=== PATIENT | male | born 1980 | race Caucasian/White ===

== ENCOUNTER 2024-03-08 07:53 | Day surgery (SDC) | payer OTHER ==
[~2024-03-08] VITALS: Ht 185.4 cm; Wt 187.3 kg
[~2024-03-08 07:53] MED LIST: IBLOOD GLUCOSE TEST STRIP 1 EA TEST VI PRN; LACTATED RINGER'S 1,000 ML IV SCH; LIDOCAINE HCL 1% 5 ML SDV INJ ONE; MIDAZOLAM HCL 5 MG/5 ML VIAL IV PRN; MULTIVITAMIN1 EACH PO; PHENTERMINE H37.5 M1 PO; VITAMIN D3125 MC1 PO; fentaNYL citrate 100 MCG/2 ML VIAL IV PRN; propofoL 200 MG/20 ML VIAL ONE
[2024-03-08 08:13] VITALS: BP 142/74
[2024-03-08] MEDS ORDERED: MAGNESIUM250 M1 PO (08:19)
[2024-03-08] MEDS ORDERED: COLLAGEN PLUS1 EACH (08:21)
[2024-03-08 08:35] LABS: BASOPHILS 0.8 % (0-2); EOSINOPHILS 1.8 % (0-6); HEMOGLOBIN 15.2 g/dL (12.0-18.0); LYMPHOCYTES 23.9 % (24-44); MCHC 33.7 g/dl (30-36); MCV 83.1 fl (81-99); NEUTROPHILS 64.5 % (39-80); PLATELET COUNT 167 K/uL (140-440); RBC 5.41 M/ul (4.3-5.7); RDW 15.3 (10.5-15.0)
[2024-03-08 08:53] LABS: ALBUMIN 3.6 g/dL (3.4-5.0); ALBUMIN/GLOBULIN RATIO 1.06 (1.1-2.4); BILIRUBIN, TOTAL 0.8 ng/dL (0.2-1.0); BUN/CREATININE RATIO 11.11 (6.0-28.6); CALCIUM 8.4 mg/dL (8.5-10.1); CREATININE, SERUM 0.72 mg/dL (0.70-1.30)
[2024-03-08 10:43] VITALS: BP 117/67
--- NOTE | 2024-03-08 10:50 | NUR ---
1040 PT ARRIVED TO DAY SURGERY FROM PACU VIA STRECHER. PT AWAKE AND ORIENTED. PT DRINKING WATER. PT BREATHING EQUAL AND UNLABORED. VITALS TAKEN. IV ASSESSED. REPORT TAKEN FROM TOYA OSBORN. PT REPORTS BASELINE NAUSEA, PT REPORTING THIS CURRENTLY BUT TOLERABLE. PT REPORTS NO PAIN AND ABLE TO PASS GAS. 1050 PT SITTING UP RIGHT WITH CALL LIGHT WITHIN REACH. PT TOLERATING PO FLUIDS AND CRACKERS.
--- NOTE | 2024-03-08 11:25 | NUR ---
1125 PT USED CALL LIGHT TO ALERT NURSE OF NEEDING TO VOID. PT WAS ABLE TO AMBULATE TO BATHROOM AND VOID 400 MLS OF CLEAR YELLOW URINE. PT BACK IN ROOM GETTING DRESSED. CALL LIGHT WITHIN REACH.
--- NOTE | 2024-03-08 11:41 | NUR ---
03/08/24 1141 Justin Oro 1000-PT ARRIVED TO PACU ON 10L/MASK. PT IS AWAKE AND ANSWERING QUESTIONS APPROPRAITELY AND ABLE TO FOLLOW COMMAND. ABD SOFT. PT REPORTS NAUSEA AT BASELINE PRIOR TO PROCEDURE, BUT DENIES ANY WORSENING FROM BASELINE. 1005-PT TIRATED TO RA. SATS REMAIN 95% OR GREATER. BREATHING APPEARS EVEN AND UNLABORED. PT REPORTS FEELING DROWSY, BUT REMAINS AWAKE. 1010-DR. HIGGINBOTHAM AT PTS BEDSIDE TO DISCUSS CASE W/PT. 1013-JCARLOS SCHMIDT AT PTS BEDSIDE DISCUSSING SLEEP APNEA AND CPAP USE AT HOME WITH PT. 1025-PT CONT TO DENY PAIN OR CHANGES IN BASELINE NAUSEA. PT TAKING SIPS OF WATER. PT REQUESTING TO HAVE HOB ELEVATED MORE. ASSISTED PT WITH REQUEST. PT DENIES DIZZINESS, LIGHTHEADEDNESS, BLURRY VISION, ECT. VSS. 1040-PT TRANSFERRED TO VIA STRETCHER TO RM 7. ALL PERSONAL BELONGINGS TAKEN WITH PT. REPORT GIVEN TO DS RN.
[2024-03-08 11:42] VITALS: BP 141/93
--- NOTE | 2024-03-08 11:50 | NUR ---
1140 HOURLY ROUNDING DONE. VITALS TAKEN. IV ASSESSED AND DISCONTINUED FOR DISCHARGE. PT REPORTS NO PAIN OR NAUSEA. PT HAS BEEN ABLE TO PASS GAS. PT HAS BEEN ABLE TO TOLERATE PO FLUIDS AND CRACKERS AND VOID. 1145 DISCHARGE INFORMATION GONE OVER WITH PATIENT. ALL QUESTIONS ANSWERED. 1150 PT DISCHARGED, PATIENT WAITING IN ROOM UNTIL PT RIDE IS ABLE TO COME.CALL LIGHT WITHIN REACH.
--- NOTE | 2024-03-08 12:25 | NUR ---
1222: PATIENT'S RIDE HERE. PATIENT DISCHARGED TO HOME VIA WHEELCHAIR.
--- NOTE | 2024-03-08 15:08 | EKG ---
[facility] [address] [facility] [place], [place] [address] Signed Normal sinus rhythm Normal ECG No previous ECGs available Confirmed by Carol Cobian ([id number]) on 03/08/2024 3:08:39 PM Electronically Signed By: CAROL COBIAN MD 03/08/24 1508 PATIENT NAME: GAMALMIROSLAVA MONICA Electrocardiogram DATE OF : 78 PHYSICIAN: CAROL COBIAN MD REPORT #: [id number] REPORT IS CONFIDENTIAL AND NOT TO BE RELEASED WITHOUT AUTHORIZATION
--- NOTE | 2024-03-08 15:09 | OR ---
[facility] [address] [place], [place] [address] Signed DATE OF OPERATION: 03/08/2024 SURGEON: Vishnu Higginbotham MD PREOPERATIVE DIAGNOSES: 1. Father with rectal cancer at age 66. 2. A paternal grandmother with colon cancer in her 60s. POSTOPERATIVE DIAGNOSES: 1. Minimal sigmoid diverticulosis. 2. 4 mm polyp at 55 cm in the left colon. 3. 4 mm polyp at 7 cm in rectum. PROCEDURE: Colonoscopy without biopsy. ESTIMATED BLOOD LOSS: None. INDICATIONS: Miroslava is a 43-year-old obese gentleman with a body mass index of 54. He said he is down to 150 pounds. He is describing what sounds like a thrombosed hemorrhoid at the 2 o'clock position. He said he has been using hydrocortisone cream and it has gone away. He had been to his primary care provider. He is worried because his father developed what sounds like a very low-lying rectal cancer at age 66. He went through radiation and chemo and everything seemed to be doing well four years later. However, his paternal grandmother had colon cancer in her 60s. It came back and she ended up passing from the colon cancer. Miroslava does not seem to have any lower GI complaints. His fecal occult blood test was negative. In the office, I gave him a pamphlet on colonoscopy. We reviewed the nature of the test. There is risk including, but not limited to gas bloating, crampy abdominal pain, bleeding, perforation requiring surgery, and missed diagnosis. We also reviewed the written instructions for the bowel prep line by line. We also reviewed the need for monitored anesthesia care given his sheer size with a very heavy face, chest, and abdomen. He also has severe sleep apnea as well. He had expressed understanding and wished to proceed. DESCRIPTION OF PROCEDURE: Miroslava was taken into our endoscopy suite and placed in the left lateral decubitus position. He was started with monitored anesthesia care with propofol infusion. Because of his coughing and his severe sleep apnea, we had to insert a LMA for the Electronically Signed By: VISHNU HIGGINBOTHAM MD 03/08/24 1509 PATIENT NAME: MIROSLAVA YEUNG OPERATIVE REPORT DATE OF : 78 REPORT #: [id number] PHYSICIAN: IVSHNU HIGGINBOTHAM MD PCP: FLORESITA NORTON MD REPORT IS CONFIDENTIAL AND NOT TO BE RELEASED WITHOUT AUTHORIZATION [facility] [address] [place], [place] [address] Signed procedure. A digital rectal exam was performed. He had good sphincter tone. There were no masses. Really no external hemorrhoids. The adult colonoscope was introduced and advanced all around into the cecum under direct visualization of the camera without difficulty. His prep was good. The scope was then slowly withdrawn. We took several pictures throughout for photodocumentation. He had two tiny polyps removed. He has very tiny diverticula in the sigmoid colon. They were small in size few in number and scattered about. Once in the rectum, the scope had been retroflexed and he really has no pathology above the anal canal. After this, the gas was suctioned out and the colonoscope removed. Miroslava tolerated the procedure quite well. RECOMMENDATIONS: I will see Miroslava back in my office in 7 to 14 days to review his results. I suspect he will be on the five year plan mainly due to his family history. MD UMANG Best/BENEDICTL /[id number] cc: [facility] Vishnu Higginbotham MD Copies: VISHNU HIGGINBOTHAM MD ~ Electronically Signed By: VISHNU HIGGINBOTHAM MD 03/08/24 1509 PATIENT NAME: MIROSLAVA YEUNG OPERATIVE REPORT DATE OF : 78 REPORT #: [id number] PHYSICIAN: VISHNU HIGGINBOTHAM MD PCP: FLORESITA NORTON MD REPORT IS CONFIDENTIAL AND NOT TO BE RELEASED WITHOUT AUTHORIZATION
--- NOTE | 2024-03-16 11:26 | PATH ---
[facility] [address] [place], [place] [address] Signed SPECIMEN(S): A RECTAL POLYP AT 7 CM SPECIMEN(S): B DESCENDING/LEFT COLON POLYP AT 55 CM SPECIMEN SOURCE: A. RECTAL POLYP AT 7 CM B. DESCENDING/LEFT COLON POLYP AT 55 CM CLINICAL HISTORY: Family history of rectal cancer and colon cancer, diverticulosis FINAL PATHOLOGIC DIAGNOSIS: A. Rectum, 7 cm, polypectomy: - Hyperplastic polyp B. Colon, descending at 55 cm, polypectomy: - Hyperplastic polyp BRP MICROSCOPIC EXAMINATION: Histologic sections of all submitted blocks are examined by light microscopy. These findings, together with the gross examination, support the pathologic diagnosis. GROSS DESCRIPTION: A. The specimen, labeled and designated "[place], rectal polyp at 7 cm," is received in formalin and consists of one pacheco soft tissue fragment, 0.3 cm. Entirely submitted in (A1). B. The specimen, labeled and designated "[place], descending/left colon polyp at 55 cm," is received in formalin and consists of one pacheco soft tissue fragment, 0.2 cm. Entirely submitted in (B1). VB (under the direct supervision of a pathologist) The Gross Description was prepared using a voice recognition system. The report was reviewed for accuracy; however, sound-alike word errors, addition and/or deletions may occur. If there is any question about this report, please contact Client Services. ADDITIONAL NOTES: Immunohistochemical and/or in situ hybridization studies if performed in this case included appropriate positive controls that reacted as expected. This test was developed and its performance characteristics determined by [facility]. It has not been cleared or approved by the U.S. Food and Drug Administration. The FDA has determined that PATIENT NAME: MIROSLAVA YEUNG PATHOLOGY DATE OF : 78 REPORT #: [id number] PHYSICIAN: ABIGAIL CHAMBERS PCP: FLORESITA NORTON MD REPORT IS CONFIDENTIAL AND NOT TO BE RELEASED WITHOUT AUTHORIZATION [facility] [address] [place], [place] [address] Signed such clearance or approval is not necessary. This test is used for clinical purposes. It should not be regarded as investigational or for research. [facility] is certified under the Clinical Laboratory Improvement Amendments of 1988 (CLIA) as qualified to perform high complexity clinical laboratory testing. PERFORMING LABORATORY: Technical component was performed by [facility], [address] [place] [id number] (CLIA# [id number]). Professional interpretation was performed by [facility], [address] [address] (CLIA# [id number]). Diagnostician: Donald Gamez MD Pathologist Electronically Signed 03/16/2024 Copies: ~ PATIENT NAME: MIROSLAVA YEUNG PATHOLOGY DATE OF : 78 REPORT #: [id number] PHYSICIAN: [facility] PCP: FLORESITA NORTON MD REPORT IS CONFIDENTIAL AND NOT TO BE RELEASED WITHOUT AUTHORIZATION
== END 2024-03-08 11:50 | disposition home or self-care (01) ==
LOC: DS 07:53
PROVIDERS: ATTEND Colon & Rectal Surgery
PROC: 0DBP8ZZ Excision of Rectum, Via Natural or Artificial Opening Endoscopic (ICD-10-PCS; 2024-03-08)
PROC: 0DBG8ZZ Excision of Left Large Intestine, Via Natural or Artificial Opening Endoscopic (ICD-10-PCS; principal; 2024-03-08 08:50)
DX: K63.5 Polyp of colon (principal); K62.1 Rectal polyp; K57.30 Diverticulosis of large intestine without perforation or abscess without bleeding; K64.5 Perianal venous thrombosis; Z80.0 Family history of malignant neoplasm of digestive organs; E66.01 Morbid (severe) obesity due to excess calories; I10 Essential (primary) hypertension; E78.5 Hyperlipidemia, unspecified; G47.33 Obstructive sleep apnea (adult) (pediatric); Z68.43 Body mass index [BMI] 50.0-59.9, adult; Z88.0 Allergy status to penicillin; Z88.1 Allergy status to other antibiotic agents
CPT/HCPCS: 00811; 36415; 80053; 85025; 93005; 93010; J2704; J7121